=== PATIENT | male | born 1955 | race Caucasian/White ===

== ENCOUNTER 2017-10-06 10:24 | Emergency (ER) | payer BC ==
[2017-10-06 10:33] VITALS: BP 143/79
--- NOTE | 2017-10-06 10:40 | EDPHY ---
H & P Time Seen by Provider: 10/06/17 10:26 HPI/ROS: CHIEF COMPLAINT: Right leg redness HISTORY OF PRESENT ILLNESS: Was at home in [place] and sustained 20 or 30 tick bites last week, he is now here in [place] visiting his son and [id number]. He about a week ago started getting redness around a small wound in his mid right carroll. For the last 2 days he has had subjective fever and chills and feels achy. Over the last 2 days the area around the wound has become red and inflamed, with a central 5 mm scab. Not sure if the wound was at the site of a tick bite; can't be sure. REVIEW OF SYSTEMS: Mild headache, 1/10 with Tylenol, no neck stiffness. PAST MEDICAL HISTORY: Negative; specifically negative for DVT, diabetes. Social history: From [place] General Appearance: Alert and conversant, cooperative. Alert, no meningeal signs. Regular rate rhythm without murmur. Compartments in the right lower leg are soft. Normal motor sensory and vascular in the right foot. He has a 5 mm scab on the anterior right carroll with surrounding erythema which is papular for 2 cm on either side and mildly indurated, not painful to palpation and no fluctuance or crepitus. No lymphangitis. Does not appear septic or toxic, is ambulatory. Afebrile. Emergency Department course/MDM: Patient presents with cellulitis surrounding a wound which would appropriately be covered with typical gram-positive antibiotic such as Keflex as well as an antibiotic for MRSA. With his tick exposure I think doxycycline is a reasonable choice to cover MRSA and also tick transmitted diseases. Patient is given warnings including potential sun sensitivity with doxycycline. I do not think it is likely that he has osteomyelitis or fasciitis or abscess, sepsis, compartment syndrome, or requires IV antibiotics. Tetanus up-to-date. Smoking Status: Never smoked Constitutional: Initial Vital Signs Temperature (C) 37.2 C 10/06/17 10:29 Heart Rate 85 10/06/17 10:29 Respiratory Rate 16 10/06/17 10:29 Blood Pressure 143/79 H 10/06/17 10:29 O2 Sat (%) 95 10/06/17 10:29 O2 Delivery Mode Room Air Allergies/Adverse Reactions: No Known Allergies Allergy (Unverified 10/06/17 10:33) Home Medications: Medication Instructions Recorded Cephalexin [Keflex] 500 mg PO QID #40 cap 10/06/17 Doxycycline Hyclate [Doxycycline] 100 mg PO BID #20 cap 10/06/17 MDM/Departure - Depart Disposition: Home, Routine, Self-Care Clinical Impression: Cellulitis of right leg Condition: Good Instructions: Cellulitis (ED) Prescriptions: Cephalexin [Keflex] 500 mg PO QID #40 cap Doxycycline Hyclate [Doxycycline] 100 mg PO BID #20 cap Referrals: CHARISMA MCCORMACK [Other] - As per Instructions
== END 2017-10-06 10:48 | disposition home or self-care (01) ==
LOC: CED 10:24
DX: L03.115 Cellulitis of right lower limb (principal)